=== PATIENT | female | born 1970 | race Caucasian/White ===

== ENCOUNTER 2016-08-19 18:41 | Emergency (ER) | payer SELFPAY ==
[~2016-08-19] VITALS: Ht 162.6 cm; Wt 54.4 kg
== END 2016-08-19 19:49 | disposition left against medical advice (07) ==
LOC: ER 18:45
DX: Z53.21 Procedure and treatment not carried out due to patient leaving prior to being seen by health care provider (principal)
CPT/HCPCS: A4606; Z7610; A6402

== ENCOUNTER 2017-09-05 20:34 | Emergency (ER) | payer SELFPAY ==
[~2017-09-05] VITALS: Ht 167.6 cm; Wt 63.5 kg
[2017-09-05 20:41] VITALS: BP 147/82
--- NOTE | 2017-09-05 20:58 | NUR ---
PA FOSTER AT BEDSIDE TO EVALUATE PATIENT.
[2017-09-05] MEDS ORDERED: IBUPROFEN 600 MG TABLET PO ONE ×2 (21:00→21:08)
== END 2017-09-06 00:38 | disposition home or self-care (01) ==
LOC: ER 20:36
DX: S90.31XA Contusion of right foot, initial encounter (principal); S80.01XA Contusion of right knee, initial encounter; S80.811A Abrasion, right lower leg, initial encounter; S79.912A Unspecified injury of left hip, initial encounter; V03.99XA Pedestrian with other conveyance injured in collision with car, pick-up truck or van, unspecified whether traffic or nontraffic accident, initial encounter; Y93.89 Activity, other specified; Y92.89 Other specified places as the place of occurrence of the external cause; Y99.8 Other external cause status
CPT/HCPCS: 73502; 73562; 73590-TC; A4606; Z7610